=== PATIENT | male | born 1965 | race Caucasian/White ===

== ENCOUNTER 2017-06-02 21:12 | Emergency (ER) | payer OTHER ==
[~2017-06-02] VITALS: Ht 165.1 cm; Wt 113.4 kg
[~2017-06-02 21:12] MED LIST: ASPI81CH PO; BENZ100A PO; CARV25 PO; CEPACOL SORE T1 EACH PO; COMBIVENT RESPIM4 GM INH; FURO40 PO; Lisinopril2.5 MG PO; MONT10T; NITR.4SL SL; POTA20LUD PO; Ventolin/Prove6.7 GM INH
[2017-06-02 21:40] LABS: BASOPHILS ABSOLUTE AUTO 0.02 K/mm3 (0.00-0.23); BASOPHILS PERCENT AUTO 0 % (0-2); EOSINOPHILS ABSOLUTE AUTO 0.17 K/mm3 (0.00-0.68); EOSINOPHILS PERCENT AUTO 3 % (0-6); Hematocrit 46.5 % (37.0-53.0); Hemoglobin 15.3 g/dL (13.5-17.5); IMMATURE GRAN ABSOLUTE AUTO 0.02 K/mm3 (0.00-0.10); IMMATURE GRAN PERCENT AUTO 0 % (0-1); LYMPHOCYTES ABSOLUTE AUTO 1.24 K/mm3 (0.84-5.20); LYMPHOCYTES PERCENT AUTO 24 % (21-46); MONOCYTES ABSOLUTE AUTO 1.22 K/mm3 (0.16-1.47); MONOCYTES PERCENT AUTO 24 % (4-13); Mean Corpuscular HGB 28.9 pg (26.0-34.0); Mean Corpuscular HGB Conc 32.9 g/dL (31.5-36.5); Mean Corpuscular Volume 88 fL (80-100); Mean Platelet Volume 10.1 fL (9.1-12.4); NEUTROPHILS ABSOLUTE AUTO 2.42 K/mm3 (1.96-9.15); NEUTROPHILS PERCENT AUTO 48 % (41-73); Platelet Count 187 K/mm3 (150-400); RDW Coefficient Variation 15.6 % (11.7-14.2); RDW Standard Deviation 50.3 fL (35.1-46.3); Red Blood Cell Count 5.29 M/mm3 (4.30-5.90); White Blood Cell Count 5.09 K/mm3 (4.00-11.30)
[2017-06-02 22:02] LABS: Alanine Aminotransfer (ALT/SGP 34 U/L (12-78); Albumin, Blood 3.2 g/dL (3.4-5.0); Albumin/Globulin Ratio 0.8 (0.8-1.8); Alk Phos 105 U/L (50-136); Anion Gap 6 mmol/L (6-16); Aspartate Aminotrans (AST/SGOT 25 U/L (12-37); Bilirubin, Total 0.2 mg/dL (0.1-1.0); Blood Urea Nitrogen 26 mg/dL (8-24); Bun/Creatinine Ratio 29.3 (12.0-20.0); CO2, Blood 29 mmol/L (21-32); Calcium, Blood 7.7 mg/dL (8.5-10.1); Chloride, Blood 105 mmol/L (98-108); Creatinine, Blood 0.89 mg/dL (0.60-1.20); Globulin, Blood 3.9 g/dL (2.2-4.0); Glomerular Filtration Rate >60 (60-); Glucose, Blood 108 mg/dL (70-99); Potassium, Blood 4.3 mmol/L (3.5-5.5); Sodium, Blood 140 mmol/L (136-145); Total Protein, Blood 7.1 g/dL (6.4-8.2); Troponin I 0.187 ng/mL (0.000-0.040)
[2017-06-02 22:09] LABS: Digoxin (Lanoxin) 0.81 ug/mL (0.80-2.00)
[2017-06-02] MEDS ORDERED: DIGOX125 MCG PO (22:35)
[2017-06-02] MEDS ORDERED: ELIQUIS5 MG PO (22:36)
[2017-06-02 23:25] LABS: Influenza A Negative (NEGATIVE); Influenza B Negative (NEGATIVE)
[2017-06-03] MEDS ORDERED: Prednisone20 MG PO (00:50)
[2017-06-03] MEDS ORDERED: Zithromax250 MG PO (00:50)
== END 2017-06-03 01:21 | disposition home or self-care (01) ==
LOC: ER 21:12
PROVIDERS: Emergency Medicine
DX: J44.1 Chronic obstructive pulmonary disease with (acute) exacerbation (principal); K85.90 Acute pancreatitis without necrosis or infection, unspecified; Z79.899 Other long term (current) drug therapy; Z79.82 Long term (current) use of aspirin; I11.0 Hypertensive heart disease with heart failure; I50.9 Heart failure, unspecified; Z87.891 Personal history of nicotine dependence
CPT/HCPCS: 36415; 71046; 74176; 80053; 80162; 83690; 84484; 85025; 87804; 93005; 93010; 94640; 96374; 99284; J2930

== ENCOUNTER 2017-06-08 13:06 | Emergency (ER) | payer OTHER ==
[~2017-06-08] VITALS: Ht 165.1 cm; Wt 117.1 kg
[~2017-06-08 13:06] MED LIST changes: +DIGOX125 MCG PO; +ELIQUIS5 MG PO; +Prednisone20 MG PO; +Zithromax250 MG PO
[2017-06-08 14:00] LABS: BASOPHILS ABSOLUTE AUTO 0.04 K/mm3 (0.00-0.23); BASOPHILS PERCENT AUTO 0 % (0-2); EOSINOPHILS ABSOLUTE AUTO 0.08 K/mm3 (0.00-0.68); EOSINOPHILS PERCENT AUTO 1 % (0-6); Hematocrit 47.9 % (37.0-53.0); Hemoglobin 16.1 g/dL (13.5-17.5); IMMATURE GRAN ABSOLUTE AUTO 0.27 K/mm3 (0.00-0.10); IMMATURE GRAN PERCENT AUTO 2 % (0-1); LYMPHOCYTES ABSOLUTE AUTO 2.77 K/mm3 (0.84-5.20); LYMPHOCYTES PERCENT AUTO 24 % (21-46); MONOCYTES ABSOLUTE AUTO 1.31 K/mm3 (0.16-1.47); MONOCYTES PERCENT AUTO 11 % (4-13); Mean Corpuscular HGB 28.7 pg (26.0-34.0); Mean Corpuscular HGB Conc 33.6 g/dL (31.5-36.5); Mean Platelet Volume 9.9 fL (9.1-12.4); NEUTROPHILS PERCENT AUTO 62 % (41-73); Platelet Count 236 K/mm3 (150-400); RDW Coefficient Variation 15.2 % (11.7-14.2); RDW Standard Deviation 47.6 fL (35.1-46.3); Red Blood Cell Count 5.61 M/mm3 (4.30-5.90); White Blood Cell Count 11.67 K/mm3 (4.00-11.30)
[2017-06-08 14:02] LABS: Mean Corpuscular Volume 85 fL (80-100)
[2017-06-08 14:17] LABS: Alanine Aminotransfer (ALT/SGP 25 U/L (12-78); Albumin, Blood 3.1 g/dL (3.4-5.0); Albumin/Globulin Ratio 0.8 (0.8-1.8); Alk Phos 108 U/L (50-136); Anion Gap 7 mmol/L (6-16); Aspartate Aminotrans (AST/SGOT 13 U/L (12-37); Bilirubin, Total 0.3 mg/dL (0.1-1.0); Blood Urea Nitrogen 30 mg/dL (8-24); Bun/Creatinine Ratio 31.3 (12.0-20.0); CO2, Blood 27 mmol/L (21-32); Calcium, Blood 7.9 mg/dL (8.5-10.1); Chloride, Blood 105 mmol/L (98-108); Creatinine, Blood 0.96 mg/dL (0.60-1.20); Globulin, Blood 3.7 g/dL (2.2-4.0); Glomerular Filtration Rate >60 (60-); Glucose, Blood 159 mg/dL (70-99); Potassium, Blood 3.6 mmol/L (3.5-5.5); Sodium, Blood 139 mmol/L (136-145); Total Protein, Blood 6.8 g/dL (6.4-8.2)
[2017-06-08 14:33] LABS: Source, Urine Clean Catch
[2017-06-08 14:41] LABS: Bilirubin, Urine Neg (Neg); Blood, Urine Neg (Neg); Glucose Qualitative, Urine Neg (Neg); Ketones, Urine Neg (Neg); Leukocyte Esterase, Urine Neg (Neg); Nitrite, Urine Neg (Neg); Protein, Urine 3+ (Neg); Urobilinogen, Urine NORM (Normal)
[2017-06-08 15:04] LABS: Appearance, Urine Clear (Clear); Color, Urine Yellow (P-Yellow)
[2017-06-08 15:05] LABS: Red Blood Cells, Urine Not Seen /hpf (0-2); Squamous Epithelial Cells Rare /hpf (Few); White Blood Cells, Urine 0-2 /hpf (0-5)
[2017-06-08 15:06] LABS: Bacteria Not Seen /hpf
[2017-06-08] MEDS ORDERED: ALBU90OI INH (18:15)
[2017-06-08] MEDS ORDERED: Prednisone20 MG PO (18:15)
[2017-06-08] MEDS ORDERED: Ventolin Sy2 MG/5 ML PO (18:40)
== END 2017-06-08 18:56 | disposition home or self-care (01) ==
LOC: ER 13:06
PROVIDERS: Emergency Medicine
DX: K85.90 Acute pancreatitis without necrosis or infection, unspecified (principal); J44.1 Chronic obstructive pulmonary disease with (acute) exacerbation; I50.9 Heart failure, unspecified; Z79.899 Other long term (current) drug therapy; Z90.49 Acquired absence of other specified parts of digestive tract; Z87.891 Personal history of nicotine dependence
CPT/HCPCS: 36415; 71046; 76705; 80053; 81001; 83690; 85025; 94640; 96374; 99284; J2930

== ENCOUNTER 2017-08-22 15:50 | Emergency (ER) | payer OTHER ==
[~2017-08-22] VITALS: Ht 165.1 cm; Wt 127.0 kg
[~2017-08-22 15:50] MED LIST changes: +ALBU90OI INH; +Ventolin Sy2 MG/5 ML PO
[2017-08-22 16:20] LABS: BASOPHILS ABSOLUTE AUTO 0.06 K/mm3 (0.00-0.23); BASOPHILS PERCENT AUTO 1 % (0-2); EOSINOPHILS PERCENT AUTO 2 % (0-6); Hematocrit 49.1 % (37.0-53.0); Hemoglobin 16.5 g/dL (13.5-17.5); IMMATURE GRAN ABSOLUTE AUTO 0.08 K/mm3 (0.00-0.10); IMMATURE GRAN PERCENT AUTO 1 % (0-1); LYMPHOCYTES ABSOLUTE AUTO 1.33 K/mm3 (0.84-5.20); LYMPHOCYTES PERCENT AUTO 15 % (21-46); MONOCYTES ABSOLUTE AUTO 1.13 K/mm3 (0.16-1.47); MONOCYTES PERCENT AUTO 13 % (4-13); Mean Corpuscular HGB Conc 33.6 g/dL (31.5-36.5); Mean Corpuscular Volume 86 fL (80-100); Mean Platelet Volume 9.9 fL (9.1-12.4); NEUTROPHILS ABSOLUTE AUTO 6.12 K/mm3 (1.96-9.15); NEUTROPHILS PERCENT AUTO 69 % (41-73); Platelet Count 269 K/mm3 (150-400); RDW Coefficient Variation 12.9 % (11.7-14.2); RDW Standard Deviation 40.5 fL (35.1-46.3); Red Blood Cell Count 5.69 M/mm3 (4.30-5.90); White Blood Cell Count 8.92 K/mm3 (4.00-11.30)
[2017-08-22 16:48] LABS: Alanine Aminotransfer (ALT/SGP 48 U/L (12-78); Albumin, Blood 3.4 g/dL (3.4-5.0); Albumin/Globulin Ratio 0.8 (0.8-1.8); Alk Phos 118 U/L (50-136); Anion Gap 8 mmol/L (6-16); Aspartate Aminotrans (AST/SGOT 25 U/L (12-37); Bilirubin, Total 0.5 mg/dL (0.1-1.0); Blood Urea Nitrogen 23 mg/dL (8-24); Bun/Creatinine Ratio 25.3 (12.0-20.0); CO2, Blood 26 mmol/L (21-32); Calcium, Blood 8.4 mg/dL (8.5-10.1); Chloride, Blood 105 mmol/L (98-108); Creatinine, Blood 0.91 mg/dL (0.60-1.20); Globulin, Blood 4.1 g/dL (2.2-4.0); Glomerular Filtration Rate >60 (60-); Glucose, Blood 104 mg/dL (70-99); Sodium, Blood 139 mmol/L (136-145); Total Protein, Blood 7.5 g/dL (6.4-8.2); Troponin I 0.173 ng/mL (0.000-0.040)
[2017-08-22] MEDS ORDERED: AEROECLIPSE II1 EACH INH (19:08)
[2017-08-22] MEDS ORDERED: Albuterol2.5 MG/0.5 INH (19:09)
[2017-08-22] MEDS ORDERED: Prednisone20 MG PO (19:09)
== END 2017-08-22 19:20 | disposition home or self-care (01) ==
LOC: ER 15:50
PROVIDERS: Physician Assistant
DX: J44.1 Chronic obstructive pulmonary disease with (acute) exacerbation (principal); Z79.899 Other long term (current) drug therapy; Z79.52 Long term (current) use of systemic steroids; I48.91 Unspecified atrial fibrillation; Z87.891 Personal history of nicotine dependence
CPT/HCPCS: 36415; 71046; 80053; 84484; 85025; 93005; 93010; 94644; 96374; 99284; J2930

== ENCOUNTER 2017-08-31 14:25 | Inpatient (IN) | payer OTHER ==
[~2017-08-31] VITALS: Ht 165.1 cm; Wt 127.5 kg
[~2017-08-31 14:25] MED LIST changes: +AEROECLIPSE II1 EACH INH; +Albuterol2.5 MG/0.5 INH
[2017-08-31 15:44] LABS: BASOPHILS ABSOLUTE AUTO 0.05 K/mm3 (0.00-0.23); BASOPHILS PERCENT AUTO 0 % (0-2); EOSINOPHILS ABSOLUTE AUTO 0.03 K/mm3 (0.00-0.68); EOSINOPHILS PERCENT AUTO 0 % (0-6); Hematocrit 49.5 % (37.0-53.0); Hemoglobin 16.7 g/dL (13.5-17.5); IMMATURE GRAN ABSOLUTE AUTO 0.17 K/mm3 (0.00-0.10); IMMATURE GRAN PERCENT AUTO 1 % (0-1); LYMPHOCYTES ABSOLUTE AUTO 1.55 K/mm3 (0.84-5.20); LYMPHOCYTES PERCENT AUTO 13 % (21-46); MONOCYTES ABSOLUTE AUTO 0.71 K/mm3 (0.16-1.47); MONOCYTES PERCENT AUTO 6 % (4-13); Mean Corpuscular HGB 29.7 pg (26.0-34.0); Mean Corpuscular HGB Conc 33.7 g/dL (31.5-36.5); Mean Corpuscular Volume 88 fL (80-100); Mean Platelet Volume 10.2 fL (9.1-12.4); NEUTROPHILS ABSOLUTE AUTO 9.34 K/mm3 (1.96-9.15); NEUTROPHILS PERCENT AUTO 79 % (41-73); Platelet Count 252 K/mm3 (150-400); RDW Coefficient Variation 13.2 % (11.7-14.2); RDW Standard Deviation 42.5 fL (35.1-46.3); Red Blood Cell Count 5.63 M/mm3 (4.30-5.90); White Blood Cell Count 11.85 K/mm3 (4.00-11.30)
[2017-08-31 15:56] LABS: International Normalized Ratio 0.99; Prothrombin Time Results 10.3 Sec (9.7-11.5)
[2017-08-31 16:24] LABS: Alanine Aminotransfer (ALT/SGP 39 U/L (12-78); Albumin, Blood 3.3 g/dL (3.4-5.0); Albumin/Globulin Ratio 0.7 (0.8-1.8); Alk Phos 125 U/L (50-136); Anion Gap 7 mmol/L (6-16); Aspartate Aminotrans (AST/SGOT 21 U/L (12-37); Bilirubin, Total 0.3 mg/dL (0.1-1.0); Blood Urea Nitrogen 27 mg/dL (8-24); Bun/Creatinine Ratio 30.3 (12.0-20.0); CO2, Blood 26 mmol/L (21-32); Calcium, Blood 8.6 mg/dL (8.5-10.1); Chloride, Blood 104 mmol/L (98-108); Creatinine, Blood 0.89 mg/dL (0.60-1.20); Globulin, Blood 4.5 g/dL (2.2-4.0); Glomerular Filtration Rate >60 (60-); Glucose, Blood 150 mg/dL (70-99); Potassium, Blood 4.2 mmol/L (3.5-5.5); Sodium, Blood 137 mmol/L (136-145); Total Protein, Blood 7.8 g/dL (6.4-8.2); Troponin I 0.084 ng/mL (0.000-0.040)
[2017-08-31 16:31] LABS: Digoxin (Lanoxin) 1.06 ug/mL (0.80-2.00)
[2017-08-31] MEDS ORDERED: BENZ100A PO (23:19)
[2017-08-31] MEDS ORDERED: OMEG1CAP30 PO (23:22)
[2017-08-31] MEDS ORDERED: PANT40 PO (23:24)
[2017-08-31] MEDS ORDERED: ENTRESTO 49 MG1 EACH PO (23:25)
[2017-09-01 04:46] LABS: BASOPHILS ABSOLUTE AUTO 0.03 K/mm3 (0.00-0.23); BASOPHILS PERCENT AUTO 0 % (0-2); EOSINOPHILS PERCENT AUTO 0 % (0-6); Hematocrit 51.7 % (37.0-53.0); Hemoglobin 17.3 g/dL (13.5-17.5); IMMATURE GRAN PERCENT AUTO 2 % (0-1); LYMPHOCYTES ABSOLUTE AUTO 1.34 K/mm3 (0.84-5.20); LYMPHOCYTES PERCENT AUTO 10 % (21-46); MONOCYTES ABSOLUTE AUTO 0.13 K/mm3 (0.16-1.47); MONOCYTES PERCENT AUTO 1 % (4-13); Mean Corpuscular HGB Conc 33.5 g/dL (31.5-36.5); Mean Corpuscular Volume 87 fL (80-100); Mean Platelet Volume 10.2 fL (9.1-12.4); NEUTROPHILS ABSOLUTE AUTO 11.31 K/mm3 (1.96-9.15); NEUTROPHILS PERCENT AUTO 87 % (41-73); Platelet Count 247 K/mm3 (150-400); RDW Standard Deviation 40.7 fL (35.1-46.3); Red Blood Cell Count 5.97 M/mm3 (4.30-5.90); White Blood Cell Count 13.01 K/mm3 (4.00-11.30)
[2017-09-01 05:08] LABS: Alanine Aminotransfer (ALT/SGP 39 U/L (12-78); Albumin, Blood 3.3 g/dL (3.4-5.0); Albumin/Globulin Ratio 0.7 (0.8-1.8); Alk Phos 127 U/L (50-136); Anion Gap 8 mmol/L (6-16); Aspartate Aminotrans (AST/SGOT 13 U/L (12-37); Bilirubin, Total 0.7 mg/dL (0.1-1.0); Blood Urea Nitrogen 31 mg/dL (8-24); Bun/Creatinine Ratio 33.9 (12.0-20.0); CO2, Blood 27 mmol/L (21-32); Calcium, Blood 8.6 mg/dL (8.5-10.1); Chloride, Blood 104 mmol/L (98-108); Creatinine, Blood 0.92 mg/dL (0.60-1.20); Globulin, Blood 4.5 g/dL (2.2-4.0); Glomerular Filtration Rate >60 (60-); Glucose, Blood 163 mg/dL (70-99); Potassium, Blood 4.2 mmol/L (3.5-5.5); Sodium, Blood 139 mmol/L (136-145); Total Protein, Blood 7.8 g/dL (6.4-8.2)
[2017-09-03 05:27] LABS: BASOPHILS ABSOLUTE AUTO 0.06 K/mm3 (0.00-0.23); BASOPHILS PERCENT AUTO 0 % (0-2); EOSINOPHILS PERCENT AUTO 0 % (0-6); Hematocrit 49.8 % (37.0-53.0); Hemoglobin 16.2 g/dL (13.5-17.5); IMMATURE GRAN ABSOLUTE AUTO 0.67 K/mm3 (0.00-0.10); IMMATURE GRAN PERCENT AUTO 3 % (0-1); LYMPHOCYTES ABSOLUTE AUTO 1.09 K/mm3 (0.84-5.20); LYMPHOCYTES PERCENT AUTO 5 % (21-46); MONOCYTES ABSOLUTE AUTO 0.52 K/mm3 (0.16-1.47); MONOCYTES PERCENT AUTO 2 % (4-13); Mean Corpuscular HGB 28.8 pg (26.0-34.0); Mean Corpuscular HGB Conc 32.5 g/dL (31.5-36.5); Mean Corpuscular Volume 89 fL (80-100); Mean Platelet Volume 10.3 fL (9.1-12.4); NEUTROPHILS ABSOLUTE AUTO 20.64 K/mm3 (1.96-9.15); NEUTROPHILS PERCENT AUTO 90 % (41-73); Platelet Count 233 K/mm3 (150-400); RDW Coefficient Variation 13.2 % (11.7-14.2); RDW Standard Deviation 42.7 fL (35.1-46.3); Red Blood Cell Count 5.62 M/mm3 (4.30-5.90); White Blood Cell Count 22.98 K/mm3 (4.00-11.30)
[2017-09-03 05:47] LABS: Anion Gap 7 mmol/L (6-16); Blood Urea Nitrogen 31 mg/dL (8-24); Bun/Creatinine Ratio 36.4 (12.0-20.0); CO2, Blood 27 mmol/L (21-32); Calcium, Blood 8.6 mg/dL (8.5-10.1); Chloride, Blood 106 mmol/L (98-108); Creatinine, Blood 0.85 mg/dL (0.60-1.20); Glomerular Filtration Rate >60 (60-); Glucose, Blood 168 mg/dL (70-99); Potassium, Blood 4.6 mmol/L (3.5-5.5); Sodium, Blood 140 mmol/L (136-145)
[2017-09-05 04:53] LABS: BASOPHILS ABSOLUTE AUTO 0.05 K/mm3 (0.00-0.23); BASOPHILS PERCENT AUTO 0 % (0-2); EOSINOPHILS PERCENT AUTO 0 % (0-6); Hematocrit 49.4 % (37.0-53.0); Hemoglobin 16.6 g/dL (13.5-17.5); IMMATURE GRAN ABSOLUTE AUTO 0.66 K/mm3 (0.00-0.10); IMMATURE GRAN PERCENT AUTO 4 % (0-1); LYMPHOCYTES ABSOLUTE AUTO 0.97 K/mm3 (0.84-5.20); LYMPHOCYTES PERCENT AUTO 6 % (21-46); MONOCYTES ABSOLUTE AUTO 0.64 K/mm3 (0.16-1.47); MONOCYTES PERCENT AUTO 4 % (4-13); Mean Corpuscular HGB 29.6 pg (26.0-34.0); Mean Corpuscular HGB Conc 33.6 g/dL (31.5-36.5); Mean Corpuscular Volume 88 fL (80-100); Mean Platelet Volume 10.4 fL (9.1-12.4); NEUTROPHILS ABSOLUTE AUTO 15.15 K/mm3 (1.96-9.15); NEUTROPHILS PERCENT AUTO 87 % (41-73); Platelet Count 219 K/mm3 (150-400); RDW Coefficient Variation 13.2 % (11.7-14.2); RDW Standard Deviation 42.4 fL (35.1-46.3); Red Blood Cell Count 5.61 M/mm3 (4.30-5.90); White Blood Cell Count 17.47 K/mm3 (4.00-11.30)
[2017-09-05 05:11] LABS: Anion Gap 5 mmol/L (6-16); Blood Urea Nitrogen 31 mg/dL (8-24); Bun/Creatinine Ratio 31.3 (12.0-20.0); CO2, Blood 32 mmol/L (21-32); Calcium, Blood 7.8 mg/dL (8.5-10.1); Chloride, Blood 104 mmol/L (98-108); Creatinine, Blood 0.99 mg/dL (0.60-1.20); Glomerular Filtration Rate >60 (60-); Glucose, Blood 161 mg/dL (70-99); Potassium, Blood 4.5 mmol/L (3.5-5.5); Sodium, Blood 141 mmol/L (136-145)
[2017-09-05] MEDS ORDERED: PRED10 PO (09:04)
[2017-09-05] MEDS ORDERED: ACET325 PO (09:05)
[2017-09-05] MEDS ORDERED: VITAMIN C500 M1 PO (09:06)
[2017-09-05] MEDS ORDERED: CEPACOL SORE T1 EACH MM (09:06)
[2017-09-05] MEDS ORDERED: DOCU100 PO (09:07)
[2017-09-05] MEDS ORDERED: AZIT500 PO (09:07)
[2017-09-05] MEDS ORDERED: GUAI600T33 PO (09:07)
[2017-09-05] MEDS ORDERED: DULERA 200 MCG/13 GM INH (09:08)
== END 2017-09-05 09:45 | disposition home or self-care (01) | DRG 189 ==
LOC: ER 14:25 → MEDS 20:13 → ENPENDDIS 09-05 08:00 → MEDS 09-05 09:45
PROVIDERS: Emergency Medicine; Internal Medicine
DX: J96.01 Acute respiratory failure with hypoxia (principal); J44.1 Chronic obstructive pulmonary disease with (acute) exacerbation; I50.22 Chronic systolic (congestive) heart failure; Z68.42 Body mass index [BMI] 45.0-49.9, adult; E66.01 Morbid (severe) obesity due to excess calories; R73.9 Hyperglycemia, unspecified; T38.0X5A Adverse effect of glucocorticoids and synthetic analogues, initial encounter
CPT/HCPCS: 36415; 71046; 80048; 80053; 80162; 83036; 83880; 84484; 85025; 85610; 93005; 93010; 94640; 94668; 94760; 94761; 96374; 99285; J0360; J0456; J1100; J1940; J2930; J7050

== ENCOUNTER 2019-03-09 18:14 | Inpatient (IN) | payer OTHER ==
[~2019-03-09] VITALS: Ht 165.1 cm; Wt 135.5 kg
[~2019-03-09 18:14] MED LIST changes: +ACET325 PO; +AZIT500 PO; +CEPACOL SORE T1 EACH MM; +DOCU100 PO; +DULERA 200 MCG/13 GM INH; +ENTRESTO 24 MG1 EACH PO; +GUAI600T33 PO; -MONT10T; +MONT10T PO; +OMEG1CAP30 PO; +PANT40 PO; +PRED10 PO; +VITAMIN C500 M1 PO
[2019-03-09 18:43] LABS: BASOPHILS ABSOLUTE AUTO 0.05 K/mm3 (0.00-0.23); BASOPHILS PERCENT AUTO 1 % (0-2); EOSINOPHILS ABSOLUTE AUTO 0.14 K/mm3 (0.00-0.68); EOSINOPHILS PERCENT AUTO 2 % (0-6); Hematocrit 42.8 % (37.0-53.0); Hemoglobin 13.1 g/dL (13.5-17.5); IMMATURE GRAN ABSOLUTE AUTO 0.04 K/mm3 (0.00-0.10); IMMATURE GRAN PERCENT AUTO 1 % (0-1); LYMPHOCYTES ABSOLUTE AUTO 1.35 K/mm3 (0.84-5.20); LYMPHOCYTES PERCENT AUTO 17 % (21-46); MONOCYTES ABSOLUTE AUTO 0.79 K/mm3 (0.16-1.47); MONOCYTES PERCENT AUTO 10 % (4-13); Mean Corpuscular HGB 25.3 pg (26.0-34.0); Mean Corpuscular HGB Conc 30.6 g/dL (31.5-36.5); Mean Corpuscular Volume 83 fL (80-100); Mean Platelet Volume 9.8 fL (9.1-12.4); NEUTROPHILS ABSOLUTE AUTO 5.83 K/mm3 (1.96-9.15); NEUTROPHILS PERCENT AUTO 71 % (41-73); Platelet Count 278 K/mm3 (150-400); RDW Coefficient Variation 18.1 % (11.7-14.2); RDW Standard Deviation 53.8 fL (35.1-46.3); Red Blood Cell Count 5.17 M/mm3 (4.30-5.90)
[2019-03-09 19:06] LABS: Alanine Aminotransfer (ALT/SGP 24 U/L (12-78); Albumin, Blood 2.7 g/dL (3.4-5.0); Albumin/Globulin Ratio 0.8 (0.8-1.8); Alk Phos 118 U/L (50-136); Anion Gap 5 mmol/L (6-16); Aspartate Aminotrans (AST/SGOT 17 U/L (12-37); Bilirubin, Total 0.9 mg/dL (0.1-1.0); Blood Urea Nitrogen 26 mg/dL (8-24); Bun/Creatinine Ratio 19.3 (12.0-20.0); CO2, Blood 30 mmol/L (21-32); Calcium, Blood 7.5 mg/dL (8.5-10.1); Chloride, Blood 104 mmol/L (98-108); Creatinine, Blood 1.35 mg/dL (0.60-1.20); Globulin, Blood 3.3 g/dL (2.2-4.0); Glomerular Filtration Rate 58 (60-); Glucose, Blood 167 mg/dL (70-99); Sodium, Blood 139 mmol/L (136-145)
[2019-03-09] MEDS ORDERED: Bumetanide2 MG PO (20:24)
[2019-03-09] MEDS ORDERED: Lipitor80 MG PO (20:24)
[2019-03-09] MEDS ORDERED: NITR.4SL SL (20:25)
[2019-03-09 20:26] LABS: Ethanol (Alcohol), Blood, Med <3 mg/dL
[2019-03-09] MEDS ORDERED: FLUT1DIS5 INH (20:26)
[2019-03-09] MEDS ORDERED: SENN187 PO (20:27)
[2019-03-09 21:24] LABS: U Amphetamine Screen DETECTED; U Barbituate Screen Not Detected; U Benzodiazapine Screen Not Detected; U Buprenorphine Screen Not Detected; U Cannabinoids Screen DETECTED; U Cocaine Screen Not Detected; U Methadone Screen Not Detected; U Methamphetamine Screen DETECTED; U Opiates Screen Not Detected; U Oxycodone Screen Not Detected; U Phencyclidine Screen Not Detected; U Propoxyphene Screen Not Detected
--- NOTE | 2019-03-09 22:15 | NUR ---
ADMIT PT ARRIVED TO ICU 15 AT 2140 VIA ER BED. PT IS AWAKE, ALERT, ORIENTED, AND PLEASANT AT THIS TIME. PT WITH LABORED BREATHING AND EXERTIONAL DYSPNEA. PT ON 2L O2 NC, SPO2 >90%. HR 130'S AFIB. BP STABLE. IV'S IN PLACE, SALINE LOCKED. RIVERA IN PLACE WITH YELLOW OUTPUT NOTED. PT DENIES PAIN OR DISCOMFORT AT THIS TIME. PT STATES HE IS HUNGRY. FAMILY MEMBER AT BEDSIDE. WILL CONTINUE TO MONITOR.
[2019-03-10 00:19] LABS: Source, Urine Catheter
[2019-03-10 00:21] LABS: Bilirubin, Urine Neg (Neg); Blood, Urine 3+ (Neg); Glucose Qualitative, Urine Neg (Neg); Ketones, Urine Neg (Neg); Leukocyte Esterase, Urine Neg (Neg); Nitrite, Urine Neg (Neg); Protein, Urine 4+ (Neg); Urobilinogen, Urine 2+ (Normal)
--- NOTE | 2019-03-10 00:32 | NUR ---
UPDATE PT CONTINUED TO HAVE HR 120-140'S AFIB. ESMOLOL LOADING DOSE AND GTT STARTED PER ORDERS. BP HAS REMAINED STABLE. HR CONTINUES IN 130-140'S AT THIS TIME. PT WITH ACUTE PANIC AND ANXIETY RELATED TO VOIDING AT THIS TIME. PT STATES "I CANT PEE UNLESS I PUSH IT OUT" DESPITE RIEVRA CATH DRAINING CLEAR YELLOW URINE. DESPITE REASSURANCE PT INSISTS HE IS UNABLE TO VOID. BLADDER SCAN PERFORMED, NO URINARY RETENTION NOTED. PT EDUCATED AND REASSURED. WILL CONTINUE TO MONITOR.
[2019-03-10 00:36] LABS: Appearance, Urine Clear (Clear); Color, Urine Amber (P-Yellow)
[2019-03-10 00:37] LABS: Amorphous Light (0-Heavy); Bacteria Mod /hpf; Squamous Epithelial Cells Not Seen /hpf (Few); White Blood Cells, Urine 0-2 /hpf (0-5)
[2019-03-10 03:11] LABS: Bun/Creatinine Ratio 18.7 (12.0-20.0); Calcium, Blood 7.4 mg/dL (8.5-10.1); Creatinine, Blood 1.39 mg/dL (0.60-1.20); Potassium, Blood 3.2 mmol/L (3.5-5.5); Troponin I 0.141 ng/mL (0.000-0.040)
--- NOTE | 2019-03-10 05:37 | NUR ---
SHIFT SUMMARY PT SLEEPING OFF AND ON THIS MORNING. WHEN AWAKE PT IS ALERT, ORIENTED, AND ANXIOUS. PT IS NOT EASILY REDIRECTABLE. PT REMAINS ON 2L O2 NC. HR REMAINS 110-140'S AFIB DESPITE ESMOLOL GTT. ESMOLOL GTT PLACED ON STANDBY THIS MORNING DUE TO HYPOTENSION WITH SBP 70-80'S. RIVERA REMAINS IN PLACE WITH DARK YELLOW URINE OUTPUT NOTED. PT HAS REPOSITIONED SELF IN BED INDEPENDENTLY. WILL CONTINUE TO MONITOR AND REPORT OFF TO ONCOMING RN.
--- NOTE | 2019-03-10 07:24 | NUR ---
ASSUMED CARE REPORT FROM JOHN HOWARD. ESMOLOL GTT OFF FOR BP. MONITOR SHOWS AFIB WITH RATES 120'S-140. ABDOMEN VERY OBESE. RIVERA CATHETER. A&O. ASKING ABOUT BREAKFAST. COFFEE PROVIDED. HEART FAILURE PAMPHLET GIVEN.
--- NOTE | 2019-03-10 09:52 | NUR ---
MD VISIT DR. FINN IN ORDER FOR AMIODARONE BOLUS AND GTT AND CARDIOLOGY CONSULT
--- NOTE | 2019-03-10 11:23 | NUR ---
AMIODARONE BOLUS GIVEN. BLOOD PRESSURE DROPPED TO 70'S SYSTOLIC. AMIODARONE STOPPED AND SENIOR COMPUTER SPECIALIST CALLED. DR. FLORES IN CASE AND WILL CALL BACK.
--- NOTE | 2019-03-10 11:27 | NUR ---
CALLED DR. FINN AND REC'D ORDER FOR 500CC BOLUS
--- NOTE | 2019-03-10 12:42 | NUR ---
MD VISIT DR. FLORES IN. ORDER FOR DIGOXIN .5 MG IV AND LASIX GTT 5 MG/HR AND TO DC BID LASIX
--- NOTE | 2019-03-10 14:23 | NUR ---
REC'D RECORDS FROM [facility]. NO ECHO
--- NOTE | 2019-03-10 16:51 | NUR ---
Echocardiogram completed.
--- NOTE | 2019-03-10 18:10 | NUR ---
MD VISIT DR. FLORES IN. ORDER FOR HEPARIN GTT TO START AT 2100 AND DIGOXIN .25 MG IV DAILY.
--- NOTE | 2019-03-10 19:30 | NUR ---
ASSUMED CARE REPORT RECIEVED. PT IS SITTING UP IN BEDSIDE CHAIR AFTER SHOWER. PT AWAKENS EASILY TO VERBAL STIMULI. PT IS ALERT, ORIENTED, AND COOPERATIVE AT THIS TIME. VITAL SIGNS STABLE WITH PT ON 2L O2 NC. SLEEP APENA NOTED WHEN PT RESTING. HR AFIB. LASIX GTT INFUSING AT 5 MG/HR AND NS TKO. RIVERA IN PLACE WITH OLAMIDE COLORED OUTPUT NOTED. NO FAMILY AT BEDSIDE. WILL CONTINUE TO MONITOR.
--- NOTE | 2019-03-10 19:45 | NUR ---
ONE ASSIST SHOWER, ORAL CARE, AND FULL LINEN CHANGE. PATIENT TOLERATED WELL.
[2019-03-10 20:36] LABS: International Normalized Ratio 1.28; Prothrombin Time Results 13.3 Sec (9.7-11.5)
[2019-03-11 05:07] LABS: BASOPHILS ABSOLUTE AUTO 0.06 K/mm3 (0.00-0.23); BASOPHILS PERCENT AUTO 1 % (0-2); EOSINOPHILS ABSOLUTE AUTO 0.11 K/mm3 (0.00-0.68); EOSINOPHILS PERCENT AUTO 1 % (0-6); Hematocrit 42.6 % (37.0-53.0); Hemoglobin 12.8 g/dL (13.5-17.5); IMMATURE GRAN ABSOLUTE AUTO 0.04 K/mm3 (0.00-0.10); IMMATURE GRAN PERCENT AUTO 0 % (0-1); LYMPHOCYTES ABSOLUTE AUTO 1.35 K/mm3 (0.84-5.20); LYMPHOCYTES PERCENT AUTO 12 % (21-46); MONOCYTES ABSOLUTE AUTO 1.21 K/mm3 (0.16-1.47); MONOCYTES PERCENT AUTO 11 % (4-13); Mean Corpuscular HGB 24.9 pg (26.0-34.0); Mean Corpuscular Volume 83 fL (80-100); Mean Platelet Volume 10.2 fL (9.1-12.4); NEUTROPHILS ABSOLUTE AUTO 8.09 K/mm3 (1.96-9.15); NEUTROPHILS PERCENT AUTO 75 % (41-73); Platelet Count 255 K/mm3 (150-400); RDW Coefficient Variation 18.2 % (11.7-14.2); RDW Standard Deviation 53.8 fL (35.1-46.3); Red Blood Cell Count 5.15 M/mm3 (4.30-5.90); White Blood Cell Count 10.86 K/mm3 (4.00-11.30)
[2019-03-11 06:03] LABS: Bun/Creatinine Ratio 20.1 (12.0-20.0); Calcium, Blood 7.9 mg/dL (8.5-10.1); Creatinine, Blood 1.54 mg/dL (0.60-1.20); Potassium, Blood 3.1 mmol/L (3.5-5.5)
--- NOTE | 2019-03-11 06:19 | NUR ---
SHIFT SUMMARY NO ACUTE CHANGES THIS SHIFT. PT SLEPT FOR MOST OF THE NIGHT. WHEN AWAKE PT HAS REMAINED ALERT, ORIENTED, AND COOPERATIVE. VITAL SIGNS STABLE, PT ON 2L O2 NC. HR REMAINS AFIB RATE 110-140'S. PT USED CPAP FOR BREIF PERIOD OF TIME DUE TO SLEEP APNEA. PT DID NOT TOLERATE CPAP WELL. LASIX INFUSING AT 5 MG/HR, NS TKO, AND HEPARIN AT 15 UNITS/KG/HR. RIVERA REMAINS IN PLACE WITH 1500 ML OUTPUT THIS SHIFT. PT HAS REPOSITIONED SELF IN BED INDEPENDENTLY. WILL CONTINUE TO MONITOR AND REPORT OFF TO ONCOMING RN.
--- NOTE | 2019-03-11 07:33 | NUR ---
ASSUMED CARE: PT RESTING IN BED. HR AFIB IN 1TEENS TO 120S. HEPARIN GTT AND LASIX GTT RUNNING. PT DENIES FURTHER NEEDS OR CONCERNS AT THIS TIME.
--- NOTE | 2019-03-11 09:00 | NUR ---
DR FLORES HERE TO SEE PT. AWARE THAT PT'S HR TOUCHES INTO 130S. SEE NEW ORDERS.
--- NOTE | 2019-03-11 12:20 | NUR ---
DR FLORES AWARE OF PT'S HYPOTENSION BUT IMPROVED HR. STATES HYPOTENSION IS ACCEPTABLE LONG MAP REMAINS ABOVE 60.
--- NOTE | 2019-03-11 15:33 | NUR ---
PT'S STRUCTURAL IRONWORKER FROM [facility] CAME TO GET AN UPDATE. PT VERBALIZED THAT STAFF COULD GIVE HER INFORMATION. MEDICAL RECORDS PHONE NUMBER GIVEN SO SHE COULD REQUEST FURTHER INFORMATION. [employer] WAS ALSO CALLED AND GIVEN STRUCTURAL IRONWORKER'S NUMBER SO THEY COULD COORDINATE FURTHER CARE
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
--- NOTE | 2019-03-11 17:22 | NUR ---
SPOKE WITH DR FLORES ABOUT PT'S RUN OF VTACH. NO NEW ORDERS
--- NOTE | 2019-03-11 18:14 | NUR ---
SHIFT SUMMARY: PT HAS BEEN SITTING UPRIGHT IN CHAIR FOR DINNER. ONE 16 BEAT RUN OF [employer] NOTED TODAY, DR CHOI. PT SLEPT THROUGH IT. LASIX GTT AND HEPARIN GTT RUNNING. PT'S HR IN 90S AT THIS TIME. PLAN IS TO STABILIZE CHF THEN DISCHARGE IN A FEW DAYS. WEARS 4L AT THIS TIME. NO ACUTE NEEDS OR DISTRESS NOTED.
[2019-03-11 19:12] LABS: Bun/Creatinine Ratio 19.2 (12.0-20.0); Calcium, Blood 7.9 mg/dL (8.5-10.1); Creatinine, Blood 1.51 mg/dL (0.60-1.20); Magnesium, Blood 1.5 mg/dL (1.6-2.4); Potassium, Blood 3.8 mmol/L (3.5-5.5)
--- NOTE | 2019-03-11 22:00 | NUR ---
ASSUMED CARE OF PT, REPORT RCV'D FROM JOHN ORTIZ. PT ALERT AND ORIENTED SITTING UP IN CHAIR. PT ABLE TO STAND AND AMBULATE TO BED WITH STANDBY ASSIST. PT STEADY ON HIS FEET BUT DYSPNEA WITH EXERTION NOTICED. LUNG SOUNDS CLEAR DIM T/O. OCCASIONAL NONPRODUCTIVE COUGH. PT EATING A SANDWICH, NO DIFFICULTY SWALLOWING OR MAINTAINING 02 SATS WHILE EATING. RIVERA PATENT AND DRAINING. HEPARIN GTT @ 17 UNITS/KG/HR MANAGED BY PHARMACY, LASIX GTT @ 5 MLS/HR (10 MG/HR). SEE FULL SHIFT ASSESSMENT.
[2019-03-12 04:11] LABS: Hematocrit 40.7 % (37.0-53.0); Hemoglobin 12.1 g/dL (13.5-17.5); Mean Corpuscular HGB 24.6 pg (26.0-34.0); Mean Corpuscular HGB Conc 29.7 g/dL (31.5-36.5); Mean Corpuscular Volume 83 fL (80-100); Platelet Count 234 K/mm3 (150-400); RDW Coefficient Variation 18.1 % (11.7-14.2); RDW Standard Deviation 54.5 fL (35.1-46.3); Red Blood Cell Count 4.91 M/mm3 (4.30-5.90); White Blood Cell Count 9.44 K/mm3 (4.00-11.30)
[2019-03-12 04:32] LABS: Bun/Creatinine Ratio 20.9 (12.0-20.0); Calcium, Blood 7.9 mg/dL (8.5-10.1); Creatinine, Blood 1.48 mg/dL (0.60-1.20); Potassium, Blood 3.7 mmol/L (3.5-5.5)
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
--- NOTE | 2019-03-12 07:31 | NUR ---
ASSUMED CARE: PT SITTING UPRIGHT IN BED, 4L OF O2 VIA NC. C/O PAIN IN LEFT GREAT TOE, TOE SLIGHTLY PINK AND SWOLLEN, PROPPED UP ON PILLOW. SINUS TACH, HR 108 AT THIS TIME. NO FURTHER NEEDS OR CONCERNS.
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
[2019-03-12 17:25] LABS: Digoxin (Lanoxin) 0.88 ug/mL (0.80-2.00)
--- NOTE | 2019-03-12 19:07 | NUR ---
SHIFT SUMMARY: PT ALTERNATED BETWEEN BED AND CHAIR T/O DAY. DIURESING WELL. HEPARIN GTT AND LASIX GTT RUNNING. PLAN IS FOR MEDICAL MANAGEMENT BUT POSSIBLE PROCEDURE DEPENDING ON LAB RESULTS AND DECISON OF CARDIOLOGY. AFIB, 90S TO 100S ON TELE. RESTING IN BED, VISITOR AT BEDSIDE. NO ACUTE NEEDS OR CONCERNS AT THIS TIME.
--- NOTE | 2019-03-12 20:00 | NUR ---
ASSUMED CARE OF PT AT 1915. REPORT RECEIVED AT BEDSIDE. PT PRESENTS IN BED, SLEEPING. HEPARIN AND LASIX DRIP VERIFIED WITH OFFGOING RN. PT IN NO APPARENT DISTRESS AT THIS TIME. WILL REVIEW CHART AND PLAN OF CARE FOR THIS PT.
--- NOTE | 2019-03-12 22:17 | NUR ---
PT AWAKENS FOR ASSESSMENT. AND HAS BEEN VERY PLEASANT AND COOPERATIVE WITH CARE AND ASSESSMENT. DENIES COMPLAINTS OF DYSPNEA. RIVERA CATHETER PATENT TO CLEAR YELLOW URINE TO BEDSIDE BAG. NO COMPLAINTS VOICED BY PT. PT'S SISTER CALLS TO CHECK ON PATIENT. UPDATE GIVEN AFTER RELEASE OF INFORMATION VERIFIED. WILL CONTINUE TO MONITOR PT.
[2019-03-13 03:14] LABS: Anion Gap 6 mmol/L (6-16); Blood Urea Nitrogen 29 mg/dL (8-24); Bun/Creatinine Ratio 23.6 (12.0-20.0); CO2, Blood 35 mmol/L (21-32); Chloride, Blood 102 mmol/L (98-108); Creatinine, Blood 1.23 mg/dL (0.60-1.20); Glomerular Filtration Rate >60 (60-); Glucose, Blood 125 mg/dL (70-99); Magnesium, Blood 1.7 mg/dL (1.6-2.4); Potassium, Blood 3.7 mmol/L (3.5-5.5); Sodium, Blood 143 mmol/L (136-145)
--- NOTE | 2019-03-13 06:45 | NUR ---
PT HAS SLEPT MOST OF THE NIGHT. HAS NO COMPLAINTS VOICED. HAS FRIEND THAT ROOMS IN FOR THE NIGHT. PT CONTINUES ON LASIX DRIP WITH GOOD RESULTS. HEPARIN DRIP CONTINUES. PHARMACY MANAGING. PT IS ABLE TO MOVE ABOUT IN BED ON HIS OWN. WILL CONTINUE TO MONITOR PT, AND WILL REPORT OFF TO ONCOMING RN.
--- NOTE | 2019-03-13 07:22 | NUR ---
ASSUMED CARE: PT RESTING QUIETLY AT THIS TIME. FRIEND AT BEDSIDE. HEPARIN AND LASIX GTTS RUNNING. AFIB ON TELE, HR IN 90S. NO ACUTE NEEDS OR CONCERNS AT THIS TIME.
--- NOTE | 2019-03-13 10:30 | NUR ---
PT ASKED IF VISITOR COULD GET HIM A MCCHICKEN FROM [employer]. INFORMED HIM THAT HE IS TO BE NPO FOR PROCEDURE AND THAT MCDONALDS IS FOOD HE SHOULD BE AVOIDING WITH HIS CARDIAC HISTORY. PT WAS ANNOYED BUT AGREED
--- NOTE | 2019-03-13 13:34 | NUR ---
PT HAS ASKED TWICE IF HE CAN EAT AND HAS BEEN INFORMED THAT HE IS WAITING FOR PROCEDURE. MADE A COMMENT THAT WE SHOULD HAVE LET HIM HAVE HIS MCDONALDS WHEN HE ORIGINALLY COMMENTED. REMINDED HIM AGAIN THAT INSTRUCTIONS WERE TO BE NPO UNTIL AFTER STRESS TEST BETWEEN 3 AND 4 PM
--- NOTE | 2019-03-13 16:01 | NUR ---
REPORT GIVEN TO JOHN ELMORE. TECH FOR RESTING PORTION STATES PT ABLE TO EAT NOW AND NPO AFTER BREAKFAST BUT NO CAFFIENE OR NITRO IN THE MEAN TIME. RAMÍREZ CHOI.
--- NOTE | 2019-03-13 18:33 | NUR ---
PT WAS DISCHARGED HOME WITH HOME HEALTH. PT'S DAUGHTER PROVIDING TRANSPORTATION. PT A 2 PERSON ASSIST FROM BED TO WHEELCHAIR AND WHEELCHAIR TO VEHICLE. PT ALERT AND ORIENTED UPON TRANSFER. PT WAS PROVIDED DISCHARGE INSTRUCTIONS WITH DAUGHTER. PT'S DAUGHTER STATED UNDERSTANDING OF DISCHARGE INSTRUCTIONS. PT BELONGINGS WITH PT TO VEHICLE.
--- NOTE | 2019-03-13 18:43 | NUR ---
PT WAS TRANSFERED TO MEDICAL FLOOR LATE THIS AFTERNOON. PT ORIENTED TO ROOM. PT TO IMAGING POST STRESS TEST. PT BACK IN ROOM, EATING DINNER. PT CURRENTLY IN ROOM WATCHING TV WITH NEPHEW AT BEDSIDE. WILL CONTINUE TO MONITOR.
--- NOTE | 2019-03-14 05:19 | NUR ---
SHIFT SUMMARY PT HAD UNEVENTFUL EVENING. REQUESTS FREQUENT SNACKS AND DRINKS. REMINDED PT OF IMPORTANCE OF LOW SODIUM DIET AND CONTROLLING FLUID INTAKE. PT MOSTLY NONCOMPLIANT. PT'S FRIEND REMAINED AT BEDSIDE THROUGHOUT THE NIGHT. EDEMA TO BLE'S MINIMAL. PT APPEARS TO HAVE MINIMAL SOB W/ EXERTION AT THIS TIME. TELEMETRY IN PLACE, PT AFIB IN THE 90'S. PT ON 2 L O2 NC. WITH O2 SATS > 90%. NO ACUTE CHANGES THIS SHIFT. VITAL SIGNS STABLE. WILL CONTINUE TO MONITOR.
[2019-03-14 05:38] LABS: Anion Gap 5 mmol/L (6-16); Blood Urea Nitrogen 37 mg/dL (8-24); Bun/Creatinine Ratio 29.8 (12.0-20.0); CO2, Blood 36 mmol/L (21-32); Calcium, Blood 8.8 mg/dL (8.5-10.1); Chloride, Blood 100 mmol/L (98-108); Creatinine, Blood 1.24 mg/dL (0.60-1.20); Glomerular Filtration Rate >60 (60-); Glucose, Blood 111 mg/dL (70-99); Potassium, Blood 3.7 mmol/L (3.5-5.5); Sodium, Blood 141 mmol/L (136-145)
--- NOTE | 2019-03-14 18:02 | NUR ---
SHIFT SUMMARY NO ACUTE CHANGES. PATIENT DENIES PAIN, NAUSEA, AND SHORTNESS OF BREATH. RIVERA DC'D, PATIENT VOIDING WITHOUT DIFFICULTY. PATIENT HAD SECOND HALF OF STRESS TEST TODAY. PATIENT UP SBA IN ROOM FOR LINE MANAGMENT. CALL LIGHT IN REACH.
--- NOTE | 2019-03-15 04:09 | NUR ---
SHIFT SUMMARY PT HAS REDNESS IN SKIN FOLDS OF ABDOMINAL AREA CAUSING DISCOMFORT. PT MAY BENEFIT FROM NYSTATIN POWDER. PT HAD NO OTHER COMPLAINTS. PT DENIES SOB OR CHEST PAIN.PT SLEPT THROUGHOUT THE NIGHT, ONLY GETTING UP TO VOID. WILL CONTINUE TO MONITOR.
--- NOTE | 2019-03-15 04:28 | NUR ---
CALLED AND UPDATED BOTH AND SISTER VIA PHONE CALL.
[2019-03-15 05:31] LABS: Anion Gap 4 mmol/L (6-16); Blood Urea Nitrogen 42 mg/dL (8-24); Bun/Creatinine Ratio 37.2 (12.0-20.0); CO2, Blood 36 mmol/L (21-32); Calcium, Blood 8.8 mg/dL (8.5-10.1); Chloride, Blood 102 mmol/L (98-108); Creatinine, Blood 1.13 mg/dL (0.60-1.20); Glomerular Filtration Rate >60 (60-); Glucose, Blood 103 mg/dL (70-99); Potassium, Blood 3.8 mmol/L (3.5-5.5); Sodium, Blood 142 mmol/L (136-145)
[2019-03-15] MEDS ORDERED: POTA10T PO (12:00)
[2019-03-15] MEDS ORDERED: DIGOX250 MCG PO (12:00)
[2019-03-15] MEDS ORDERED: Prednisone10 MG PO (12:01)
--- NOTE | 2019-03-15 15:54 | NUR ---
SHIFT SUMMARY PT AWAKE DURING SHIFT REPORT, RESTING QUIETLY WATCHING TV. NO C/O. INDEPENDENT IN RM. ADMITTED FOR CHF EXAC; BUMEX GIVEN. STRESS TEST COMPLETE YESTERDAY; NO FURTHER CARDIOLOGY INTERVENTION AT THIS TIME, PER SHIFT REPORT. PT NONCOMPLIANT WITH MEDS AND TREATMENT. CONTINUES TO USE METH. DOES NOT TAKE CARE OF HIMSELF; SMELLS OF URINE, EVEN AFTER A SHOWER. DR PENDLETON IN TO SEE PT THIS AM. D/C ORDERS PLACED. PT TO F/U WITH PCP AND CARDIOLOGY AT HOME IN [place], PER PT REQUEST. PT EDU GIVEN, IV AND TELE D/C'D. PT ASSISTED OUT VIA W/C FOR SISTER TO P/U.
== END 2019-03-15 13:15 | disposition home or self-care (01) | DRG 292 ==
LOC: ER 18:14 → ICUW 21:38 → MEDS 03-13 16:17 → ENPENDDIS 03-15 10:47 → MEDS 03-15 13:15
PROVIDERS: Emergency Medicine; Internal Medicine; Internal Medicine Interventional Cardiology; ADMIT Hospitalist
DX: I11.0 Hypertensive heart disease with heart failure (principal); Z68.42 Body mass index [BMI] 45.0-49.9, adult; N17.9 Acute kidney failure, unspecified; J96.11 Chronic respiratory failure with hypoxia; Z99.81 Dependence on supplemental oxygen; I50.43 Acute on chronic combined systolic (congestive) and diastolic (congestive) heart failure; J44.9 Chronic obstructive pulmonary disease, unspecified; Z94.5 Skin transplant status; Z87.891 Personal history of nicotine dependence; E66.01 Morbid (severe) obesity due to excess calories; I25.5 Ischemic cardiomyopathy; E78.5 Hyperlipidemia, unspecified; Z59.0 Homelessness; F15.10 Other stimulant abuse, uncomplicated; M10.9 Gout, unspecified
CPT/HCPCS: 36415; 51702; 71045; 78452; 80048; 80053; 80162; 81001; 83735; 83880; 84132; 84484; 85025; 85027; 85610; 85730; 87086; 93005; 93010; 93017; 93306; 94640; 94660; 94762; 96374-59; 96375-59; 96376-59; 99285-25; A9270; A9500; G0480; J0282; J1160; J1644; J1940; J2785; J3475; J3480; J7030; J7050; J7060; J7512